=== PATIENT | male | born 1965 | race Caucasian/White ===

== ENCOUNTER 2017-03-02 21:51 | Emergency (ER) | payer OTHER, BC ==
[~2017-03-02] VITALS: Ht 182.9 cm; Wt 82.9 kg
[2017-03-02] MEDS ORDERED: BACTRIM,SEPT1 TABLET PO (23:30)
[2017-03-02 23:39] VITALS: BP 142/103
== END 2017-03-02 23:40 | disposition home or self-care (01) ==
LOC: RME 21:51 → EME 21:51 → RME 23:40
DX: S61.210A Laceration without foreign body of right index finger without damage to nail, initial encounter (principal); W26.8XXA Contact with other sharp object(s), not elsewhere classified, initial encounter; F17.200 Nicotine dependence, unspecified, uncomplicated; Z23 Encounter for immunization
CPT/HCPCS: 99281; 99284